=== PATIENT | male | born 1960 | race Caucasian/White ===

== ENCOUNTER → 2017-12-16 | Outpatient (CLI) | payer BC ==
[~2017-12-16] MED LIST: IOPAMIDOL (ISOVUE-370) 150 ML BTL IV ONE
== END ==
LOC: FIMAGING 13:41
PROVIDERS: ATTEND Physician Assistant Medical
DX: I25.10 Atherosclerotic heart disease of native coronary artery without angina pectoris (principal); C81.90 Hodgkin lymphoma, unspecified, unspecified site
CPT/HCPCS: Q9967

== ENCOUNTER 2018-01-06 11:46 | Day surgery (SDC) | payer BC ==
[2018-01-06] MEDS ORDERED: diphenhydrAMINE 25 MG CAP PO ONE (11:49)
[2018-01-06] MEDS ORDERED: NS 1,000 ML IV ONE (11:49)
[2018-01-06] MEDS ORDERED: ASPIRIN EC 325 MG TAB PO ONE (11:49)
[2018-01-06] MEDS ORDERED: DIAZEPAM 5 MG TAB PO ONE (11:49)
[2018-01-06] MEDS ORDERED: FAMOTIDINE 20 MG TAB PO ONE (11:49)
--- NOTE | 2018-01-06 12:13 | CPEKG ---
Heart Rate: 70 RR Interval: 857 P-R Interval: 188 QRSD Interval: 90 QT Interval: 404 QTC Interval: 436 P [place]: 25 QRS [place]: -8 T Wave [place]: -4 EKG Severity - BORDERLINE ECG - EKG Impression: SINUS RHYTHM EKG Impression: BORDERLINE T ABNORMALITIES, INFERIOR LEADS Electronically Signed By: Tiana Conrad 06-Jan-2018 15:25:42
[2018-01-06] MEDS ORDERED: LIDOCAINE 1% 300 MG/30 ML SDV ONE (12:22)
[2018-01-06] MEDS ORDERED: MIDAZOLAM 2 MG/2 ML VIAL ONE ×3 (12:22→13:39)
[2018-01-06] MEDS ORDERED: fentaNYL 100 MCG/2 ML INJ ONE ×2 (12:22→13:24)
[2018-01-06] MEDS ORDERED: HEPARIN 10,000 UNIT/10 ML MDV (1,000 UNIT/ML) ONE (12:23)
[2018-01-06] MEDS ORDERED: VERAPAMIL 5 MG/2 ML VIAL ONE (12:23)
[2018-01-06] MEDS ORDERED: IOPAMIDOL (ISOVUE-370) 150 ML BTL IV ONE ×2 (12:23)
[2018-01-06 12:25] LABS: PLATELET COUNT 188 10^3/uL (150-400)
[2018-01-06 12:36] LABS: INR 0.98 (0.83-1.16); PROTIME(PATIENT) 13.2 SEC (12.0-15.0)
--- NOTE | 2018-01-06 13:04 | PDHPUP ---
History & Physical Update H&P update statement: This history and physical update is based on an assessment of the patient which was completed after admission or registration (within 24 hours), but prior to the surgery/procedure. H&P update: H&P reviewed & patient examined, no change in patient's condition since H&P completed
--- NOTE | 2018-01-06 13:05 | PDPROPOC ---
Sedation Plan of Care Sedation Plan of Care: vital signs stable, mental status noted, patient educated of risks, benefits, alternatives, patient can tolerate sedation ASA Classification: ASA 2 Planned drugs: fentanyl, midazolam Mallampati Score: Class 2 Mallampati Reference Image: Patient passed 3-3-2 rule?: Yes
--- NOTE | 2018-01-06 13:31 | PDDXCAT ---
Diagnostic Cath Note - . Date: 01/06/18 Compliance Analyst: [place] Indication: Class III or IV angina, which improves to class I/II w medical therapy (f) - Procedure Access: right wrist Procedure: left heart catheterization, coronary angiography, left ventriculogram - Materials Left Heart Cath size: 5F Left Heart Cath materials: standard multipack (JL4, JR4, pigtail) - Findings-Left Heart Catheterization LM: The LM is 5mm in size and trifurcates into an LAD, Ramus, and circumflex system. LAD: It is 4mm in size. There is a 40% lesion mid segment. GRISELDA III flow. LCX: It is 3mm in size. GRISELDA III flow. Ramus: It is 2mm in size. EDP: The EDP is 19mmHg. LVEF: The EF is 60%. Wall motion: On the LV gram there is normal LV systolic funstion. The EF is 60% . There is no resting segmental wall motion abnormalities. The visualized portion of the thoracic aorta reveals three sinius of valsalva most consistent with a trileaflet valve. There is no gradient on pullback. Complications: None. Estimated blood loss: <50ml Closure method: TR Band Assessment: The patient has [place] vessel coronary disease. There is no evidence of flow limiting obstruction, dissection, or thrombus. GRISELDA III flow throughout. Plan: The patient has non-flow limiting coronary disease that should be treated medically to achieve a non-HDL Cholesterol of less than 100 mg/dL and anti platelet therapy with ASA is also recommends specifically a dose of 162 mg per day. His BP also needs to be controlled for a goal systolic pressure of less than 130 mmHg. Intervention: None. Patient Problems: Problems Problem Status Onset Coronary artery disease Acute
[2018-01-06] MEDS ORDERED: NITROGLYCERIN 0.4 MG BTL SL PRN (13:47)
[2018-01-06] MEDS ORDERED: OXYCODONE/APAP 5/325 TAB PO PRN (13:47)
[2018-01-06] MEDS ORDERED: HYDROCODONE/APAP 5/325 TAB PO PRN (13:47)
[2018-01-06] MEDS ORDERED: ONDANSETRON 4 MG/2 ML VIAL IVP PRN (13:47)
[2018-01-06] MEDS ORDERED: ATROPINE SULFATE 1 MG/10 ML SYR IVP PRN (13:47)
== END 2018-01-06 16:38 | disposition home or self-care (01) ==
LOC: FCATH 11:46
PROVIDERS: ATTEND Internal Medicine Cardiovascular Disease
DX: I25.119 Atherosclerotic heart disease of native coronary artery with unspecified angina pectoris (principal); I10 Essential (primary) hypertension; E78.5 Hyperlipidemia, unspecified; F17.200 Nicotine dependence, unspecified, uncomplicated; Z85.71 Personal history of Hodgkin lymphoma; Z90.49 Acquired absence of other specified parts of digestive tract
CPT/HCPCS: J1644; J2250; J3010; Q9967